=== PATIENT | female | born 1985 | race Caucasian/White ===

== ENCOUNTER 2016-08-14 09:30 | Outpatient (CLI) | payer MEDICAID | END 2016-08-14 09:31 | disposition home or self-care (01) | DX: N94.6 Dysmenorrhea, unspecified (principal); E66.01 Morbid (severe) obesity due to excess calories ==

== ENCOUNTER 2016-08-29 09:00 | Emergency (ER) | payer MEDICAID | END 2016-08-29 10:18 | disposition home or self-care (01) | DX: K04.7 Periapical abscess without sinus (principal) ==

== ENCOUNTER 2018-07-18 10:17 | Emergency (ER) | payer MEDICAID ==
[2018-07-18 10:29] VITALS: BP 127/80
--- NOTE | 2018-07-18 12:14 | ED Physician Documentation ---
PD HPI URI - Stated complaint Stated Complaint: SOA, COUGH - Chief complaint Chief Complaint: Resp - History obtained from History obtained from: Patient, Family - History of Present Illness Timing - onset: Other (Is actually been sick for several months, with cough and cold symptoms, worse in the last few days with more productive cough and shortness of breath and wheezing. Cold. 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 - Present Medications Home Medications: Ambulatory Orders Medication Instructions Recorded Confirmed RX: Amoxicillin 500 mg PO TID #30 capsule 08/29/16 RX: Ibuprofen [Motrin] 800 mg PO Q8H PRN #30 tablet 08/29/16 RX: Albuterol Sulf [Ventolin Hfa 1 - 2 puffs INH Q4HR PRN #1 inhaler 07/18/18 Inhaler] RX: Doxycycline Hyclate 100 mg PO BID #14 capsule 07/18/18 RX: predniSONE [Deltasone] 60 mg PO DAILY 5 Days tablet 07/18/18 guaiFENesin/CODEINE [Robitussin AC] 5 - 10 ml PO Q6H PRN #120 ml 07/18/18 - Allergies Allergies/Adverse Reactions: Allergies Allergy/AdvReac Type Severity Reaction Status Date / Time No Known Drug Allergies Allergy Verified 08/29/16 09:08 - Social History Does the pt smoke?: No Smoking Status: Never smoker Does the pt drink ETOH?: Yes PD ED PE NORMAL - Vitals Vital signs reviewed: Yes - General General: Alert and oriented X 3, Other (Frequent bronchitic cough) - HEENT HEENT: Pharynx benign - Neck Neck: Supple, no meningeal sign, No bony TTP - Cardiac Cardiac: RRR, No murmur - Respiratory Respiratory: Other (Wheezy and rhonchi throughout) - Abdomen Abdomen: Non tender - Derm Derm: No rash - Extremities Extremities: No edema, No calf tenderness / cord - Psych Psych: Normal mood, Normal affect Results - Vitals Vitals: Vital Signs - 24 hr 07/18/18 10:27 Temperature 36.7 C Heart Rate 95 Respiratory 20 Rate Blood Pressure 127/80 O2 Saturation 99 Oxygen O2 Source Room air - Rads (name of study) 2v chest Radiology: EMP read contemporaneously (Mild right basilar pneumonia) Departure - Departure Disposition: 01 Home, Self Care Clinical Impression: Bronchitis Pneumonia Qualifiers: Pneumonia type: due to unspecified organism Laterality: right Lung location: lower lobe of lung Qualified Code(s): J18.1 - Lobar pneumonia, unspecified organism Condition: Good Record reviewed to determine appropriate education?: Yes Instructions: ED Bronchitis Asthmatic Prescriptions: RX: Albuterol Sulf [Ventolin Hfa Inhaler] 1 - 2 puffs INH Q4HR PRN #1 inhaler PRN Reason: Shortness Of Air/Wheezing RX: Doxycycline Hyclate 100 mg PO BID #14 capsule guaiFENesin/CODEINE [Robitussin AC] 5 - 10 ml PO Q6H PRN #120 ml PRN Reason: Cough RX: predniSONE [Deltasone] 60 mg PO DAILY 5 Days tablet Comments: Call your doctor to arrange a follow-up appointment, make the next available appointment. In the interim, return anytime if worse or if new symptoms develop. Forms: Activity restrictions Discharge Date/Time: 07/18/18 12:23
--- NOTE | 2018-07-18 12:15 | XRAY Report ---
Reason: sob, cough Procedure Date: 07/18/2018 Accession Number: [id number] / [id number] Procedure: XR - Chest 2 View X-Ray CPT Code: 53565 FULL RESULT: EXAM: CHEST RADIOGRAPHY EXAM DATE: 07/18/2018 11:40 AM. CLINICAL HISTORY: Sob, cough. COMPARISON: None. TECHNIQUE: 2 views. FINDINGS: Lungs/Pleura: Mild right basilar opacities could reflect mild infection. No focal left-sided consolidation seen. No evidence for pleural effusion or pneumothorax. Mediastinum: Heart and mediastinal contours are unremarkable. Other: None. IMPRESSION: 1. Mild right basilar opacities could reflect mild infection. RADIA
== END 2018-07-18 12:23 | disposition home or self-care (01) ==
LOC: ED 10:17
DX: J40 Bronchitis, not specified as acute or chronic (principal); J18.9 Pneumonia, unspecified organism
CPT/HCPCS: 71046; 99283

== ENCOUNTER 2019-05-23 10:10 | Outpatient (CLI) | payer MEDICAID ==
[2019-05-23 10:35] LABS: BASOPHILS # (AUTO) 0.1 10^3/uL (0.0-0.1); BASOPHILS % (AUTO) 0.9 %; EOSINOPHILS # (AUTO) 0.1 10^3/uL (0.0-0.7); EOSINOPHILS % (AUTO) 2.2 %; HGB - HEMOGLOBIN 13.6 g/dL (12.0-16.0); LYMPHOCYTES # (AUTO) 2.6 10^3/uL (1.5-3.5); LYMPHOCYTES % (AUTO) 46.7 %; MEAN CORPUSCULAR HEMOGLOBIN 30.8 pg (27.0-31.0); MEAN CORPUSCULAR HGB CONC 33.6 g/dL (32.0-36.0); MEAN CORPUSCULAR VOLUME 91.8 fL (81.0-99.0); MONOCYTES # (AUTO) 0.3 10^3/uL (0.0-1.0); MONOCYTES % (AUTO) 6.2 %; NEUTROPHILS # (AUTO) 2.4 10^3/uL (1.5-6.6); NEUTROPHILS % (AUTO) 43.8 %; PLT - PLATELET COUNT 222 10^3/uL (130-450); RED BLOOD COUNT 4.41 10^6/uL (4.20-5.40); RED CELL DISTRIBUTION WIDTH 12.3 % (12.0-15.0); WHITE BLOOD COUNT 5.5 x10^3/uL (4.8-10.8)
[2019-05-23 10:40] LABS: BILIRUBIN,URINE NEGATIVE (NEGATIVE); GLUCOSE, URINE (UA) NEGATIVE (NEGATIVE); KETONES,URINE (UA) NEGATIVE (NEGATIVE); LEUKOCYTE ESTERASE, URINE NEGATIVE (NEGATIVE); NITRITE,URINE NEGATIVE (NEGATIVE); OCCULT BLOOD,URINE NEGATIVE (NEGATIVE); PROTEIN,URINE NEGATIVE (NEGATIVE); UROBILINOGEN,URINE 0.2 (NORMAL) E.U./dL (NORMAL)
[2019-05-23 10:45] LABS: CLARITY,URINE CLEAR (CLEAR)
[2019-05-23 10:46] LABS: ALBUMIN 4.2 g/dL (3.2-5.5); ALBUMIN/GLOBULIN RATIO 1.4 (1.0-2.2); BILIRUBIN,TOTAL 0.7 mg/dL (0.2-1.0); CREATININE 0.9 mg/dL (0.4-1.0); TOTAL PROTEIN 7.3 g/dL (6.7-8.2)
[2019-05-23 10:50] LABS: BACTERIA,URINE Moderate /HPF (None Seen); RBC,URINE 0-5 /HPF (0-5); SQUAMOUS EPITHELIAL CELL,UR FEW Squamous (<= Few)
[2019-05-23 10:55] LABS: HCG,QUALITATIVE BLOOD NEGATIVE; INR 1.1 (0.8-1.2); PT - PROTHROMBIN TIME 12.3 secs (9.9-12.6)
[2019-05-23 11:03] LABS: PARTIAL THROMBOPLASTIN TIME 33.5 secs (24.9-33.3)
== END 2019-05-23 10:11 | disposition home or self-care (01) ==
LOC: LAB 10:10
PROVIDERS: ATTEND Obstetrics & Gynecology
DX: Z01.812 Encounter for preprocedural laboratory examination (principal)
CPT/HCPCS: 36415; 80053; 81001; 84703; 85025; 85610; 85730

== ENCOUNTER 2019-10-29 14:07 | Emergency (ER) | payer MEDICAID ==
--- NOTE | 2019-10-29 14:29 | ED Physician Documentation ---
PD HPI FEMALE - Stated complaint Stated Complaint: F - Chief complaint Chief Complaint: Abd Pain - History obtained from History obtained from: Patient - Additional information Additional information: This is a G7 now G8 who had a tubal ligation reversal last year and has been trying to get aided by Clomid. She had a fairly normal menses in mid September, and now has a head doffer than normal flow which was a few days late associated with 3+ tests from different manufacturers today. There is no pain. 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 - Present Medications Home Medications: Ambulatory Orders Medication Instructions Recorded Confirmed Amoxicillin 500 mg PO TID #30 capsule 08/29/16 Ibuprofen [Motrin] 800 mg PO Q8H PRN #30 tablet 08/29/16 Albuterol Sulf [Ventolin Hfa 1 - 2 puffs INH Q4HR PRN #1 inhaler 07/18/18 Inhaler] Doxycycline Hyclate 100 mg PO BID #14 capsule 07/18/18 guaiFENesin/CODEINE [Robitussin AC] 5 - 10 ml PO Q6H PRN #120 ml 07/18/18 predniSONE [Deltasone] 60 mg PO DAILY 5 Days tablet 07/18/18 - Allergies Allergies/Adverse Reactions: Allergies Allergy/AdvReac Type Severity Reaction Status Date / Time No Known Drug Allergies Allergy Verified 10/29/19 14:22 - Living Situation Living Situation: reports: With spouse/s.o. - Social History Does the pt smoke?: No Smoking Status: Never smoker Does the pt drink ETOH?: Yes PD ED PE NORMAL - Vitals Vital signs reviewed: Yes - General General: Alert and oriented X 3, No acute distress - HEENT HEENT: PERRL, EOMI - Neck Neck: Supple, no meningeal sign, No bony TTP - Cardiac Cardiac: RRR, No murmur - Respiratory Respiratory: No respiratory distress, Clear bilaterally - Abdomen Abdomen: Normal bowel sounds, Soft, Non tender - Derm Derm: Normal color, Warm and dry - Extremities Extremities: No edema, No calf tenderness / cord - Neuro Neuro: Alert and oriented X 3 Results - Vitals Vitals: Vital Signs - 24 hr 10/29/19 14:17 Temperature 36.4 C L Heart Rate 108 H Respiratory 16 Rate Blood Pressure 141/87 H O2 Saturation 100 Oxygen O2 Source Room air - Labs Labs: Laboratory Tests 10/29/19 10/29/19 10/29/19 14:25 14:42 14:42 WBC 6.7 RBC 4.82 Hgb 14.6 Hct 43.2 MCV 89.6 MCH 30.3 MCHC 33.8 RDW 12.3 Plt Count 236 MPV 10.1 Neut # (Auto) 3.1 Lymph # (Auto) 3.0 [place] # (Auto) 0.4 Eos # (Auto) 0.1 Baso # (Auto) 0.0 Absolute Nucleated RBC 0.00 Nucleated RBC % 0.0 Sodium Potassium Chloride Carbon Dioxide Anion Gap BUN Creatinine Estimated GFR (MDRD) Glucose Calcium Total Bilirubin AST ALT Alkaline Phosphatase Total Protein Albumin Globulin Albumin/Globulin Ratio Lipase HCG, Quant Urine Color YELLOW Urine Clarity CLEAR Urine pH 6.0 Ur Specific [place] 1.020 Urine Protein NEGATIVE Urine Glucose (UA) NEGATIVE Urine Ketones NEGATIVE Urine Occult Blood NEGATIVE Urine Nitrite NEGATIVE Urine Bilirubin NEGATIVE Urine Urobilinogen 0.2 (NORMAL) Ur Leukocyte Esterase NEGATIVE Ur Microscopic Review NOT INDICATED Urine Culture Comments NOT INDICATED Blood Type O POSITIVE 10/29/19 10/29/19 14:42 14:42 WBC RBC Hgb Hct MCV MCH MCHC RDW Plt Count MPV Neut # (Auto) Lymph # (Auto) [place] # (Auto) Eos # (Auto) Baso # (Auto) Absolute Nucleated RBC Nucleated RBC % Sodium 139 Potassium 3.8 Chloride 103 Carbon Dioxide 27 Anion Gap 9.0 BUN 13 Creatinine 0.8 Estimated GFR (MDRD) 83 L Glucose 96 Calcium 9.4 Total Bilirubin 0.5 AST 23 ALT 27 Alkaline Phosphatase 45 Total Protein 7.9 Albumin 4.3 Globulin 3.6 Albumin/Globulin Ratio 1.2 Lipase 32 HCG, Quant 29.69 Urine Color Urine Clarity Urine pH Ur Specific [place] Urine Protein Urine Glucose (UA) Urine Ketones Urine Occult Blood Urine Nitrite Urine Bilirubin Urine Urobilinogen Ur Leukocyte Esterase Ur Microscopic Review Urine Culture Comments Blood Type - Rads (name of study) Pelvic Sono Radiology: EMP read contemporaneously (neg study) PD MEDICAL DECISION MAKING - ED course ED course: 33-year-old woman with history of tubal ligation reversal presents with vaginal bleeding and positive test but no pain. Beta-hCG only 29 and ultrasound is as suspected nondiagnostic given that value. Close follow-up was advised. Departure - Departure Disposition: 01 Home, Self Care Clinical Impression: Threatened Condition: Good Record reviewed to determine appropriate education?: Yes Instructions: ED Miscarriage Poss Follow-Up: [facility] [Provider Group] Comments: As discussed, there is no evidence of a ectopic , that said a very early ectopic or normal cannot be ruled out. My suspicion though is that this was an early miscarriage as we discussed. Recommend follow-up with your warehouse distribution specialist in a week for ultrasound and repeat beta-hCG testing return for new or worsening symptoms.
[2019-10-29 14:37] LABS: BILIRUBIN,URINE NEGATIVE (NEGATIVE); GLUCOSE, URINE (UA) NEGATIVE (NEGATIVE); KETONES,URINE (UA) NEGATIVE (NEGATIVE); LEUKOCYTE ESTERASE, URINE NEGATIVE (NEGATIVE); NITRITE,URINE NEGATIVE (NEGATIVE); OCCULT BLOOD,URINE NEGATIVE (NEGATIVE); PROTEIN,URINE NEGATIVE (NEGATIVE); UROBILINOGEN,URINE 0.2 (NORMAL) E.U./dL (NORMAL)
[2019-10-29 14:40] LABS: CLARITY,URINE CLEAR (CLEAR)
[2019-10-29 14:53] LABS: BASOPHILS % (AUTO) 0.6 %; EOSINOPHILS # (AUTO) 0.1 10^3/uL (0.0-0.7); EOSINOPHILS % (AUTO) 1.5 %; HGB - HEMOGLOBIN 14.6 g/dL (12.0-16.0); LYMPHOCYTES % (AUTO) 45.1 %; MEAN CORPUSCULAR HEMOGLOBIN 30.3 pg (27.0-31.0); MEAN CORPUSCULAR HGB CONC 33.8 g/dL (32.0-36.0); MEAN CORPUSCULAR VOLUME 89.6 fL (81.0-99.0); MEAN PLATELET VOLUME 10.1 fL (7.9-10.8); MONOCYTES # (AUTO) 0.4 10^3/uL (0.0-1.0); MONOCYTES % (AUTO) 6.4 %; NEUTROPHILS # (AUTO) 3.1 10^3/uL (1.5-6.6); NEUTROPHILS % (AUTO) 46.1 %; PLT - PLATELET COUNT 236 10^3/uL (130-450); RED BLOOD COUNT 4.82 10^6/uL (4.20-5.40); RED CELL DISTRIBUTION WIDTH 12.3 % (12.0-15.0); WHITE BLOOD COUNT 6.7 x10^3/uL (4.8-10.8)
[2019-10-29 15:07] LABS: ALBUMIN 4.3 g/dL (3.2-5.5); ALBUMIN/GLOBULIN RATIO 1.2 (1.0-2.2); BILIRUBIN,TOTAL 0.5 mg/dL (0.2-1.0); CALCIUM 9.4 mg/dL (8.5-10.3); CREATININE 0.8 mg/dL (0.4-1.0); TOTAL PROTEIN 7.9 g/dL (6.7-8.2)
--- NOTE | 2019-10-29 16:34 | Ultrasound Report ---
PROCEDURE: OB First Trimester INDICATIONS: Vag bleed, pos preg test OUTSIDE/PRIOR DATING DATA: Last menstrual period (LMP): 09/27/2019. LMP-based estimated date of delivery (JOVANNA): 07/03/2020. First dating scan (date and location): This examination. Estimated date of delivery (JOVANNA) from first dating scan: Not applicable as below. TECHNIQUE: Real-time scanning was performed of the fetus and maternal pelvic organs, with image documentation. COMPARISON: None. FINDINGS: Embryo: No definite intrauterine gestation identified. Measurement variability in dating: +/- 4 weeks by LMP, +/- 7 days by mean sac diameter (use before 6 weeks gestation if crown-rump length not able to be measured), +/- 5 days by crown-rump length (6-12 weeks gestation). Maternal organs: Ovaries demonstrate multiple physiologic follicular cysts. Right ovarian cyst measu res 3.8 x 2.9 x 3.1 cm, possibly corpus luteum. Limited images through the kidneys demonstrate no hy dronephrosis. IMPRESSION: No intrauterine gestation identified. Technically, this could reflect early IUP, missed spontaneous a bortion versus ectopic . Recommend correlation with serial beta hCG values and follow-up wit h repeat ultrasound in one week as indicated. Reviewed by: Artem García MD on 10/29/2019 4:33 PM PDT Approved by: Artem García MD on 10/29/2019 4:33 PM PDT Station ID: [id number]
--- NOTE | 2019-10-29 16:44 | Ultrasound Report ---
PROCEDURE: OB Transvaginal INDICATIONS: Vag bleed, pos preg test Findings are dictated on the contemporaneous first trimester OB ultrasound dated same day. Please see report Reviewed by: Artem García MD on 10/29/2019 4:43 PM PDT Approved by: Artem García MD on 10/29/2019 4:43 PM PDT Station ID: [id number]
[2019-10-29 17:10] VITALS: BP 124/87
== END 2019-10-29 17:05 | disposition home or self-care (01) ==
LOC: ED 14:07
DX: O20.0 Threatened abortion (principal); Z3A.00 Weeks of gestation of pregnancy not specified
CPT/HCPCS: 36415; 76801; 76817; 80053; 81001; 81003; 83690; 84702; 85025; 86900; 86901; 87086; 99282; 99284

== ENCOUNTER 2019-11-03 17:20 | Outpatient (CLI) | payer MEDICAID | END 2019-11-03 17:21 | disposition home or self-care (01) | LOC: LAB 17:20 | PROVIDERS: ATTEND Obstetrics & Gynecology | DX: Z32.01 Encounter for pregnancy test, result positive (principal); Z98.51 Tubal ligation status | CPT/HCPCS: 84702 ==

== ENCOUNTER 2019-11-06 10:20 | Outpatient (CLI) | payer MEDICAID | END 2019-11-06 23:59 | disposition home or self-care (01) | LOC: LAB.WCP 10:20 | PROVIDERS: ATTEND Obstetrics & Gynecology | DX: Z32.01 Encounter for pregnancy test, result positive (principal); Z98.51 Tubal ligation status | CPT/HCPCS: 36415; 84702 ==

== ENCOUNTER 2019-11-06 16:09 | Emergency (ER) | payer MEDICAID ==
[2019-11-06 16:51] LABS: BASOPHILS # (AUTO) 0.1 10^3/uL (0.0-0.1); BASOPHILS % (AUTO) 0.7 %; EOSINOPHILS # (AUTO) 0.1 10^3/uL (0.0-0.7); HGB - HEMOGLOBIN 14.2 g/dL (12.0-16.0); LYMPHOCYTES # (AUTO) 3.2 10^3/uL (1.5-3.5); LYMPHOCYTES % (AUTO) 46.6 %; MEAN CORPUSCULAR HEMOGLOBIN 29.7 pg (27.0-31.0); MEAN CORPUSCULAR HGB CONC 32.9 g/dL (32.0-36.0); MEAN CORPUSCULAR VOLUME 90.2 fL (81.0-99.0); MEAN PLATELET VOLUME 9.7 fL (7.9-10.8); MONOCYTES # (AUTO) 0.5 10^3/uL (0.0-1.0); NEUTROPHILS % (AUTO) 43.4 %; PLT - PLATELET COUNT 250 10^3/uL (130-450); RED BLOOD COUNT 4.78 10^6/uL (4.20-5.40); RED CELL DISTRIBUTION WIDTH 12.7 % (12.0-15.0); WHITE BLOOD COUNT 6.9 x10^3/uL (4.8-10.8)
[2019-11-06 17:03] LABS: ALBUMIN 4.3 g/dL (3.2-5.5); ALBUMIN/GLOBULIN RATIO 1.3 (1.0-2.2); BILIRUBIN,TOTAL 0.4 mg/dL (0.2-1.0); CALCIUM 9.4 mg/dL (8.5-10.3); CREATININE 0.9 mg/dL (0.4-1.0); TOTAL PROTEIN 7.5 g/dL (6.7-8.2)
--- NOTE | 2019-11-06 17:21 | ED Physician Documentation ---
History of Present Illness - Stated complaint Stated Complaint: SPOTTING / CRAMPING - Chief complaint Chief Complaint: Abd Pain - History obtained from History obtained from: Patient - History of Present Illness Pain level max: 4 Pain level now: 3 - Additonal information Additional information: 33-year-old female who is here with 3 to 4 days of vaginal spotting. 8 para 6. She had a reversal of her tubal ligation last year and anticipating of trying to get . Patient was seen in the emergency department 10/29/19 for vaginal spotting. At that time she had an hCG quant of 29. An ultrasound could not definitively establish an IUP. Patient reports that since then her hCG levels have continued to rise but she does not think they are rising appropriately. This a.m. she began to have heavier bleeding and now with some associated lower pelvic cramping. Patient reports that historically she is O+. Patient denies fevers,dysuria. feeling faint, vomiting. 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 - Present Medications Home Medications: Ambulatory Orders Medication Instructions Recorded Confirmed Amoxicillin 500 mg PO TID #30 capsule 08/29/16 Ibuprofen [Motrin] 800 mg PO Q8H PRN #30 tablet 08/29/16 Albuterol Sulf [Ventolin Hfa 1 - 2 puffs INH Q4HR PRN #1 inhaler 07/18/18 Inhaler] Doxycycline Hyclate 100 mg PO BID #14 capsule 07/18/18 guaiFENesin/CODEINE [Robitussin AC] 5 - 10 ml PO Q6H PRN #120 ml 07/18/18 predniSONE [Deltasone] 60 mg PO DAILY 5 Days tablet 07/18/18 - Allergies Allergies/Adverse Reactions: Allergies Allergy/AdvReac Type Severity Reaction Status Date / Time No Known Drug Allergies Allergy Verified 11/06/19 16:22 - Social History Does the pt smoke?: No Smoking Status: Never smoker Does the pt drink ETOH?: Yes PD ED PE NORMAL - General General: Alert and oriented X 3, No acute distress, Well developed/nourished - HEENT HEENT: PERRL, EOMI - Cardiac Cardiac: RRR, No murmur - Respiratory Respiratory: No respiratory distress - Abdomen Abdomen: Normal bowel sounds, Soft, Non tender - Female Female : Deferred - Derm Derm: Normal color, Warm and dry, No rash - Neuro Neuro: Alert and oriented X 3, salvage winder 2-12 intact Eye Opening: Spontaneous Motor: Obeys Commands Verbal: Oriented GCS Score: 15 Results - Vitals Vitals: Vital Signs - 24 hr 11/06/19 16:22 Temperature 36.6 C Heart Rate 95 Respiratory 15 Rate Blood Pressure 143/83 H O2 Saturation 97 Oxygen O2 Source Room air - Labs Labs: Laboratory Tests 11/06/19 11/06/19 11/06/19 16:43 16:43 16:43 WBC 6.9 RBC 4.78 Hgb 14.2 Hct 43.1 MCV 90.2 MCH 29.7 MCHC 32.9 RDW 12.7 Plt Count 250 MPV 9.7 Neut # (Auto) 3.0 Lymph # (Auto) 3.2 [place] # (Auto) 0.5 Eos # (Auto) 0.1 Baso # (Auto) 0.1 Absolute Nucleated RBC 0.00 Nucleated RBC % 0.0 Sodium 139 Potassium 4.1 Chloride 106 Carbon Dioxide 26 Anion Gap 7.0 BUN 13 Creatinine 0.9 Estimated GFR (MDRD) 73 L Glucose 108 H Calcium 9.4 Total Bilirubin 0.4 AST 17 ALT 24 Alkaline Phosphatase 42 Total Protein 7.5 Albumin 4.3 Globulin 3.2 Albumin/Globulin Ratio 1.3 Lipase 32 HCG, Quant 657.92 Urine Color Urine Clarity Urine pH Ur Specific [place] Urine Protein Urine Glucose (UA) Urine Ketones Urine Occult Blood Urine Nitrite Urine Bilirubin Urine Urobilinogen Ur Leukocyte Esterase Ur Microscopic Review Urine Culture Comments Blood Type 11/06/19 11/06/19 17:17 17:17 WBC RBC Hgb Hct MCV MCH MCHC RDW Plt Count MPV Neut # (Auto) Lymph # (Auto) [place] # (Auto) Eos # (Auto) Baso # (Auto) Absolute Nucleated RBC Nucleated RBC % Sodium Potassium Chloride Carbon Dioxide Anion Gap BUN Creatinine Estimated GFR (MDRD) Glucose Calcium Total Bilirubin AST ALT Alkaline Phosphatase Total Protein Albumin Globulin Albumin/Globulin Ratio Lipase HCG, Quant Urine Color YELLOW Urine Clarity CLEAR Urine pH 6.0 Ur Specific [place] 1.025 Urine Protein NEGATIVE Urine Glucose (UA) NEGATIVE Urine Ketones NEGATIVE Urine Occult Blood NEGATIVE Urine Nitrite NEGATIVE Urine Bilirubin NEGATIVE Urine Urobilinogen 0.2 (NORMAL) Ur Leukocyte Esterase NEGATIVE Ur Microscopic Review NOT INDICATED Urine Culture Comments NOT INDICATED Blood Type O POSITIVE - Rads (name of study) Pelvic US Radiology: Final report received (No intrauterine gestation seen, no sonographic evidence of definitive ectopic .) PD MEDICAL DECISION MAKING - ED course Complexity details: reviewed results, re-evaluated patient, d/w patient ED course: 33-year-old female presents to the emergency department with a chief complaint of vaginal spotting in the first trimester . - Her HCG Today is approximately 650. Her hCG on the was 29; this does represent an appropriate level of hCG rise over the last 9 days - Pelvic ultrasound again demonstrates lack of an IUP. However there are no additional findings to suggest ectopic such as ovarian mass or fluid in the cul-de-sac. In addition patient's hemogram is normal her vital signs are stable and she is not tachycardic. - Patient will be followed very closely with Dr. Orantes over the next week for continued rise in her hCG. The bleeding is concerning therefore this represents a threatened miscarriage at this time. - UA today unremarkable for signs of infection - I spent time discussing with patient emergent return precautions to the emergency department which include fevers, suddenly severe lower abdominal pain, feeling faint, any syncope, or severe bleeding. Departure - Departure Disposition: 01 Home, Self Care Clinical Impression: Threatened miscarriage in early Condition: Stable Instructions: ED Miscarriage Poss Follow-Up: Ayanna Burris MD [Provider Admit Priv/Credential] - Comments: Mery please continue very close follow-up with Dr. Burris. The ultrasound today did not show evidence of an intrauterine . Continue to get your hCG level drawn as directed on Sunday. Please return to the emergency department if you develop suddenly severe lower pelvic pain, feel faint or weak, or if you have severe vaginal bleeding. Your hCG today was 657. The hCG on the 28 of October was 29. This is an appropriate rise in your hormone levels
[2019-11-06 17:25] LABS: BILIRUBIN,URINE NEGATIVE (NEGATIVE); GLUCOSE, URINE (UA) NEGATIVE (NEGATIVE); KETONES,URINE (UA) NEGATIVE (NEGATIVE); LEUKOCYTE ESTERASE, URINE NEGATIVE (NEGATIVE); NITRITE,URINE NEGATIVE (NEGATIVE); OCCULT BLOOD,URINE NEGATIVE (NEGATIVE); PROTEIN,URINE NEGATIVE (NEGATIVE); UROBILINOGEN,URINE 0.2 (NORMAL) E.U./dL (NORMAL)
[2019-11-06 17:33] LABS: CLARITY,URINE CLEAR (CLEAR)
--- NOTE | 2019-11-06 19:12 | Ultrasound Report ---
PROCEDURE: OB First Trimester INDICATIONS: vaginal bleeding; RLQ pain. establish IUP OUTSIDE/PRIOR DATING DATA: Last menstrual period (LMP): 09/27/2019. LMP-based estimated date of delivery (JOVANNA): 07/03/2020. TECHNIQUE: Real-time scanning was performed of the fetus and maternal pelvic organs, with image documentation. COMPARISON: 10/29/2019 FINDINGS: No intrauterine gestation, no sign of hemorrhage free fluid within the peritoneal space. Embryo: None seen. Maternal organs: Ovaries a previously present right ovarian cyst is reducing in size, now measuring 2.7 x 2.3 x 2.1 cm. Its largest dimension previously was 3.8 cm. No sonographic evidence of definite ectopic . Limited images through the kidneys demonstrate no hydronephrosis. IMPRESSION: No intrauterine gestation seen, no sonographic evidence of definite ectopic . Please correla te with quantitative beta hCG values. No sign of hemorrhagic free fluid within the peritoneal space. Reviewed by: Sorin Whitney MD on 11/06/2019 7:11 PM PDT Approved by: Sorin Whitney MD on 11/06/2019 7:11 PM PDT Station ID: [id number]
[2019-11-06 19:53] VITALS: BP 129/82
== END 2019-11-06 19:53 | disposition home or self-care (01) ==
LOC: ED 16:09
DX: O20.0 Threatened abortion (principal); Z3A.00 Weeks of gestation of pregnancy not specified
CPT/HCPCS: 36415; 76801; 76817; 80053; 81001; 81003; 83690; 84702; 85025; 86900; 86901; 87086; 99284

== ENCOUNTER 2019-11-09 13:03 | Outpatient (CLI) | payer MEDICAID | END 2019-11-09 13:04 | disposition home or self-care (01) | LOC: LAB 13:03 | PROVIDERS: ATTEND Obstetrics & Gynecology | DX: Z98.51 Tubal ligation status (principal); Z32.01 Encounter for pregnancy test, result positive | CPT/HCPCS: 84702 ==

== ENCOUNTER 2019-11-11 10:59 | Outpatient (CLI) | payer MEDICAID ==
--- NOTE | 2019-11-11 11:57 | Ultrasound Report ---
PROCEDURE: OB First Trimester INDICATIONS: Possible ectopic TECHNIQUE: Real-time scanning was performed of the fetus and maternal pelvic organs, with image documentation. COMPARISON: 11/06/2019 and 10/29/2019 FINDINGS: The previously described right ovarian cyst has not significantly changed in size, currently measurin g approximately 2.2 x 2.7 x 3.2 cm. This cyst again has some internal echoes which appear low level a nd lacy in their architecture, suggesting that this represents a resolving hemorrhagic cyst. There is no increased blood flow or motion associated with the echogenic components of the cyst. There is small volume free fluid. The uterus contains no free fluid, gestational sac, or other evidence of intrauterine /alexandre ptus. IMPRESSION: No sonographic evidence of intrauterine . No confirmatory findings of ectopic . Complex right ovarian cyst, not significant change in size from multiple prior studies, again with lo w-level lacy internal echoes suggesting etiology as a hemorrhagic cyst. No increased blood flow or mo tion associated with the echogenic components of the cyst to indicate ectopic . Small volume free pelvic fluid. Reviewed by: Sae Razo MD on 11/11/2019 11:56 AM PDT Approved by: Sae Razo MD on 11/11/2019 11:56 AM PDT Station ID: [id number]
== END 2019-11-11 11:00 | disposition home or self-care (01) ==
LOC: DI 10:59
PROVIDERS: ATTEND Obstetrics & Gynecology
DX: N83.201 Unspecified ovarian cyst, right side (principal); R93.89 Abnormal findings on diagnostic imaging of other specified body structures
CPT/HCPCS: 76801

== ENCOUNTER 2019-11-12 10:11 | Outpatient (CLI) | payer MEDICAID | END 2019-11-12 23:59 | disposition home or self-care (01) | LOC: LAB.WCP 10:11 | PROVIDERS: ATTEND Obstetrics & Gynecology | DX: Z32.01 Encounter for pregnancy test, result positive (principal) | CPT/HCPCS: 36415; 84702 ==

== ENCOUNTER 2020-04-06 08:00 | Outpatient (CLI) | payer MEDICAID ==
[2020-04-06 18:31] LABS: HEMOGLOBIN A1c% 5.3 % (4.27-6.07)
[2020-04-06 19:40] LABS: ALBUMIN 4.3 g/dL (3.2-5.5); ALBUMIN/GLOBULIN RATIO 1.3 (1.0-2.2); BILIRUBIN,TOTAL 0.8 mg/dL (0.2-1.0); CALCIUM 9.4 mg/dL (8.5-10.3); CREATININE 0.7 mg/dL (0.4-1.0); TOTAL PROTEIN 7.7 g/dL (6.7-8.2)
[2020-04-06 19:58] LABS: PROLACTIN 6.35 ng/mL
[2020-04-06 20:21] LABS: FOLLICLE STIMULATING HORMONE 8.52 mIU/mL
== END 2020-04-06 23:59 | disposition home or self-care (01) ==
LOC: LAB.WCP 08:00
PROVIDERS: ATTEND Obstetrics & Gynecology
DX: Z31.89 Encounter for other procreative management (principal); Z13.1 Encounter for screening for diabetes mellitus; Z31.69 Encounter for other general counseling and advice on procreation; Z13.21 Encounter for screening for nutritional disorder
CPT/HCPCS: 36415; 80053; 81599; 82306; 82670; 83001; 83036; 83520; 84146; 84443